=== PATIENT | female | born 1970 | race Caucasian/White ===

== ENCOUNTER 2018-04-07 00:05 | Inpatient (IN) | payer OTHER, MEDICAID ==
[~2018-04-07] VITALS: Ht 121.9 cm; Wt 49.4 kg
[2018-04-07] VITALS (19 sets, daily range): BP systolic 78–165; BP diastolic 35–91
--- NOTE | 2018-04-07 00:05 | NUR ---
47/F BIBA [facility] STARTED TODAY. PT FEBRILE WITH 101.3 RECTAL TEMP, PT ARRIVED WITH DIAPHORETIC SKIN AND ON 2LPM NC. CRACKLES NOTED THROUGHOUT LUNG SOUNDS SATS 97% ON 2LPMNC. TACHY AT 116. PMH: SEIZURE, CERBRAL PALSY, OSTEOPOROSIS, GTUBE, EMYPSHEMA. PT WAS GIVEN TYLENOL 2 HOURS TECHNICAL SALES DIRECTOR BY FACILITY. COOLING MEASURES INITIATED
--- NOTE | 2018-04-07 00:05 | NUR ---
PT [facility] BLS. TAKEN TO BED 3
--- NOTE | 2018-04-07 00:11 | NUR ---
Dr. Nash evaluating patient at bedside.
[2018-04-07] MEDS ORDERED: NACL 0.9% 1,000 ML IV ONE ×2 (00:29)
[2018-04-07] MEDS ORDERED: PIPERACILLIN/TAZOBACTAM 3.375 GM in DEXTROSE 5% 50 ML IV ONE ×2 (00:30→02:15)
[2018-04-07] MEDS ORDERED: ALBUTEROL SULFATE/IPRATROPIU 3 ML SOL IH ONE (00:30)
[2018-04-07] MEDS ORDERED: MIRABULK GT (00:42)
[2018-04-07] MEDS ORDERED: PREG150C GT (00:42)
[2018-04-07] MEDS ORDERED: METO25TA GT (00:42)
[2018-04-07] MEDS ORDERED: LACO150T GT (00:42)
[2018-04-07] MEDS ORDERED: ATOR10TA GT (00:42)
[2018-04-07] MEDS ORDERED: DIGO0.122 GT (00:42)
[2018-04-07] MEDS ORDERED: CHOL100037 GT (00:42)
[2018-04-07] MEDS ORDERED: calcium carbonate (00:42)
[2018-04-07] MEDS ORDERED: ATRN INH (00:42)
[2018-04-07] MEDS ORDERED: RANI150C GT (00:42)
[2018-04-07] MEDS ORDERED: GEMF600T5 GT (00:42)
[2018-04-07] MEDS ORDERED: CARB200T4 GT ×2 (00:42)
[2018-04-07] MEDS ORDERED: CAL40 GT (00:42)
[2018-04-07] MEDS ORDERED: ALEN70TA1 GT (00:42)
[2018-04-07] MEDS ORDERED: PRON INH (00:42)
[2018-04-07] MEDS ORDERED: MULT9LIQ5 GT (00:42)
[2018-04-07] MEDS ORDERED: DIAZEPAM PR (00:42)
[2018-04-07] MEDS ORDERED: NIAC500T30 GT (00:42)
--- NOTE | 2018-04-07 00:48 | NUR ---
RT AT BEDSIDE
[2018-04-07] MEDS ORDERED: PIPERACILLIN/TAZOBACTAM 3.375 GM VIAL IV ONE ×2 (00:51→07:54)
[2018-04-07 01:17] LABS: BASOPHILS % (AUTO) 0.3 % (0.0-2.0); EOSINOPHILS # (AUTO) 0.1 K/uL (0-0.4); EOSINOPHILS % (AUTO) 0.7 % (0.0-4.0); HEMATOCRIT 43.9 % (36-48); HEMOGLOBIN 14.9 g/dL (12.0-16.0); LYMPHOCYTES # (AUTO) 1.8 K/uL (2.5-16.5); MEAN CORPUSCULAR HEMOGLOBIN 31 pg (27-31); MEAN CORPUSCULAR HGB CONC 34 g/dL (33-37); MEAN CORPUSCULAR VOLUME 92.4 fL (80-94); MONOCYTES % (AUTO) 9.7 % (1.7-9.3); NEUTROPHILS # (AUTO) 7.7 K/uL (1.8-7.7); NEUTROPHILS % (AUTO) 72.3 % (42.2-75.2); PLATELET COUNT (AUTO) 204 K/uL (140-450); RED BLOOD CELL COUNT(AUTO) 4.75 MIL/uL (4.20-5.40); RED CELL DISTRIBUTION WIDTH 13.1 % (11.6-13.7); WHITE BLOOD COUNT (AUTO) 10.7 K/uL (4.8-10.8)
[2018-04-07 01:33] LABS: BILIRUBIN,URINE NEGATIVE (NEGATIVE); BLOOD, URINE NEGATIVE (NEGATIVE); COLOR,URINE YELLOW (YELLOW); LEUKOCYTE ESTERASE ,URINE NEGATIVE (NEGATIVE); NITRITE, URINE NEGATIVE (NEGATIVE); UGLUCOSE NEGATIVE (NEGATIVE)
[2018-04-07 01:38] LABS: ANION GAP 10.7 (8-16); CARBON DIOXIDE 31.1 mmol/L (21-32); CREATININE 0.3 mg/dL (0.6-1.3); POTASSIUM 3.8 mmol/L (3.5-5.1)
[2018-04-07 01:44] LABS: TOTAL BILIRUBIN 0.2 mg/dL (0.0-1.0)
[2018-04-07 01:50] LABS: ALBUMIN 3.2 g/dL (3.4-5.0)
[2018-04-07 01:51] LABS: APPEARANCE,URINE SLIGHTLY HAZY (CLEAR); RBC,URINE 0-5 (RARE) /HPF (0-5); WBC,URINE 0-5 (RARE) /HPF (0-5)
[2018-04-07 01:51] LABS: PROTHROMBIN TIME 10.4 secs (10.8-13.4)
[2018-04-07 01:52] LABS: URINE AMORPHOUS URATE 1+ /HPF (None Seen)
[2018-04-07] MEDS ORDERED: HYDROcodone/APAP 5/325 MG 1 TAB TAB PO PRN (01:55)
[2018-04-07] MEDS ORDERED: ONDANSETRON 4 MG/2 ML VIAL IM/IVP PRN (01:55)
[2018-04-07] MEDS ORDERED: DOCUSATE SODIUM 100 MG GELCAP PO PRN (01:55)
[2018-04-07] MEDS ORDERED: ACETAMINOPHEN 325 MG TAB PO PRN (01:55)
[2018-04-07] MEDS ORDERED: MORPHINE SULFATE 2 MG/ML SYR IVP PRN (01:55)
[2018-04-07] MEDS ORDERED: ZOLPIDEM 5 MG TAB PO PRN (01:55)
[2018-04-07] MEDS ORDERED: ALBUTEROL SULFATE/IPRATROPIU 3 ML SOL IH PRN (02:10)
--- NOTE | 2018-04-07 02:19 | NUR ---
Patient will be admitted to [facility]. Admited to TELE . Will go to room 121B. Belongings list completed. Report to JUNO WHITTAKER.
[2018-04-07 02:26] LABS: BARBITURATE, URINE NEG. ng/ml (NEG <=200); BENZODIAZEPINE, URINE NEG. ng/mL (NEG <=200); CANNABINOID, URINE NEG. ng/mL (NEG <=50); COCAINE, URINE NEG. ng/mL (NEG <=300); OPIATE, URINE NEG. ng/mL (NEG <=2000); PHENCYCLIDINE SCREEN,URINE NEG. ng/mL (NEG <=25)
[2018-04-07 02:26] LABS: CHOL/HDL RATIO 3.9 (1-4.5); MAGNESIUM 1.9 mg/dL (1.8-2.4); PHOSPHORUS 2.9 mg/dL (2.5-4.9); THYROID STIMULATING HORMONE 1.09 uIU/mL (0.34-3.74)
--- NOTE | 2018-04-07 02:38 | NUR ---
RECEIVED FROM ER PER SHELLY PT. DX, OF SEPSIS FROM [facility]. NONE VERBAL. LEGALLY BLIND HISTORY, MENTAL RETARDATION , CEREBRAL PALSY , GT FEEDING. COPD AND EMPHYSEMA, OSTEOPOROSIS. COMPLAINTS OF FEVER FROM [facility] CARE AND COUGHING. AFEBRILE AT THIS TIME. CONTRACTED UPPER AND LOWER EXTREMITIES. TELEMETRY MONITORING. SKIN INTACT. TOTAL CARE. NEEDS WILL BE ANTICIPATED AND WILL BE MET. NO EDEMA . LUNGS- CRACKLES .
[2018-04-07] MEDS ORDERED: DIAZEPAM 10 MG PR SCH (03:10)
--- NOTE | 2018-04-07 03:15 | NUR ---
CALLED TO EVALUATE PATIENT, ARRIVED AT ROOM AND PATIENT WAS LETHARGIC AND UNRESPONSIVE, SAO2-89% ON NON- RE-BREATHER WHICH I PLACED ON PATIENT SPOKE TO DR. AGUERO AND SAID PATIENT NEEDS TO BE INTUBATED. DID STATE ABG AND RESULTS GIVEN TO DR. AGUERO. WHILE PATIENT BEING TRANSFERRED TO ICU AT 0333
--- NOTE | 2018-04-07 03:17 | NUR ---
PAGED RESPIRATORY THERAPIST RT 02 SAT AT 6LPM/NC IS 88-89 %. PLACED ON OXYMIZER BY RESPIRATORY THERAPIST. RESIDENT IN HERE TO FURTHER ASSESS PT. STATUS. PLACED A CALL IN [facility] AND CARE FOR FURTHER INFORMATION. NO RESPONSE. RESIDENT TRIED CALLING TOO. NO ANSWER. NO ANSWERING MACHINE ON TEL # [phone] STAT ORDERED BY RESIDENT CASTANO AND MD KHAN FROM ER IN HERE CALLED BY RESIDENT CASTANO.
--- NOTE | 2018-04-07 03:26 | NUR ---
PT. AT THIS TIME NONE RESPONSIVE. PLAN TO INTUBATE PER MD KHAN AND TO TRANSFER TO ICU. CHARGE NURSE ON THE PHONE TO INFORM POWER BRAKE REBUILDER.
--- NOTE | 2018-04-07 03:33 | NUR ---
RECEIVED REPORT FROM PUPPET DEVELOPER, JUNO, FOR CONTINUITY OF CARE. PT WAS BROUGHT IN WITH ER NURSE AND DR. KHAN ALONG WITH RT. PT TO BE INTUBATED.
--- NOTE | 2018-04-07 03:33 | NUR ---
DR. AGUERO AT BEDSIDE; PER DR. AGUERO SHE ALREADY NOTIFIED DR. VARGAS FOR CONSULT. WILL NOTIFY HER WHEN THE DOCTOR COMES IN.
--- NOTE | 2018-04-07 03:44 | NUR ---
PATIENT INTUBATED BY DR. KHAN WITH ETT 7.0 AT 20CM AT LIP. ETCO2 POSITIVE FOR GAS EXCHANGE, B/S BILATERAL AND EQUAL SAO2 95%. PLACED ON VENTILATOR AC-24, VT-350ML, FIO2-100%, PEEP +5. SUCTION THICK YELLOW/GREEN SPUTUM AND SENT TO LAB FOR CULTURE
--- NOTE | 2018-04-07 03:44 | NUR ---
PT. TRANSFERRED TO ICU AND REPORT GIVEN TO SHRIMP TRAWLER.
--- NOTE | 2018-04-07 03:44 | NUR ---
PT WAS SUCCESSFULLY INTUBATED. CHEST XRAY TO FOLLOW. VS STABLE AT THIS TIME. DR AGUERO STILL AT BEDSIDE.
--- NOTE | 2018-04-07 03:46 | NUR ---
CALLED RADIOLOGY DEPARTMENT FOR CHEST X-RAY POST INTUBATION
[2018-04-07] MEDS ORDERED: SUCCINYLCHOLINE CHLORIDE 200 MG/10 ML VIAL IVP ONE (03:50)
[2018-04-07] MEDS ORDERED: ETOMIDATE 20 MG/10 ML VIAL IVP ONE (03:50)
--- NOTE | 2018-04-07 03:50 | NUR ---
VS STABLE. AFEBRILE. FLACC 0. PT HAS CONTRACTED EXTREMITIES. ETT TO VENT WITH SETTINGS: FIO2 50%, TV 350, RR 24 AND PEEP 5. LUNG SOUND COARSE. RESPIRATIONS EVEN AND UNLABORED AT THIS TIMED. S1+S2 HEARD. SINUS TACHYCARDIA ON MONITOR. PULSES PALPABLE IN ALL EXTREMITIES. ABDOMEN ROUND, SOFT AND NONDISTENDED. GTUBE IN PLACE. NO RESIDUAL NOTED. RECEIVED PT WITH PERIPHERAL IV ACCESS ON RIGHT ARM 20G AND RIGHT UPPER ARM 22G. MEDLEY CATHETER IN PLACE THAT IS DRAINING CLEAR AND LIGHT YELLOW URINE. KEPT HOB AT 30 DEGREES. ALL SAFETY PRECAUTIONS ARE IN PLACE. WILL CONTINUE TO MONITOR PT.
--- NOTE | 2018-04-07 04:00 | NUR ---
0340 RSI PERFORMED BY LEXY COLLAZO GIVEN PER ORDERS. ETT 7.0 20 AT THE LIP. Addendum: 04/07/18 at 0424 by Agency 05 RN RN 0342 50MG SUCC GIVEN IVP PER ORDER
[2018-04-07] MEDS ORDERED: DEXTROSE 50% 50 ML SYR IVP PRN (04:10)
[2018-04-07] MEDS: NACL 0.9% 1,000 ML IV SCH ×2 (04:30→20:32)
[2018-04-07] MEDS ORDERED: MECLIZINE 25 MG TAB PO PRN (04:30)
--- NOTE | 2018-04-07 05:25 | NUR ---
VISUAL MANAGER AT BEDSIDE TO DRAW BLOOD.
[2018-04-07] MEDS ORDERED: ALBUTEROL SULFATE/IPRATROPIU 3 ML SOL IH SCH (06:00)
[2018-04-07] MEDS: LORazepam 2 MG/ML VIAL IM/IVP PRN (06:48)
[2018-04-07] MEDS ORDERED: PIPER/TAZO 3.375GM/D5W PREMIX 50 ML IV SCH (07:00)
--- NOTE | 2018-04-07 07:25 | NUR ---
RECEIVED REPORT FROM CORPORATE COMPLIANCE OFFICER RN. PT RESTING IN BED. RESPONSE TO PAIN, NON-VERBAL. ST ON MONITOR. ON ETT TO VENT AC 24 FIO2 100% TV 350 PEEP 5. LUNGS COARSE ON AUSCULTATION. MICHELLE 22G. NS RUNNING AT 60 ML/HR. ABDOMEN SOFT, ROUND AND NON-TENDER. ACTIVE BOWEL SOUND. G-TUBE IN LUQ. ON MEDLEY CATH DRAINING CLEAR URINE VIA GRAVITY. CONTRACTED BOTH UPPER AND LOWER EXTREMITIES. REDNESS NOTED ON LEFT ABDOMEN. HOB ELEVATED. BED IN LOW POSITION LOCKED. WILL CONTINUE TO MONITOR.
--- NOTE | 2018-04-07 07:35 | NUR ---
PT SEEN BY MARC SOLORIO AND RESIDENT GROUP. MADE HANSEN ABOUT UNABLE TO GET NEW LINE WITH 20G FOR CT ANGIO PROCEDURE.
[2018-04-07] MEDS ORDERED: NACL 0.9% 500 ML IV SCH (08:00)
[2018-04-07] MEDS: INSULIN LISPRO SLIDING SCALE 100 UNITS/ML VIAL SUBQ PRN ×4 (08:02→20:58)
[2018-04-07] MEDS: BLOOD GLUCOSE MONITORING 1 DEV DEV FS SCH ×4 (08:05→20:55)
--- NOTE | 2018-04-07 08:05 | NUR ---
DIANE/RN A T BEDSIDE FOR PATIENT PHYSICAL ASSESSMENT, HYGIENE AND REPOSITION CARD FIXER TO ATTEMPT HHN THERAPY PATIENT AND VENTILATOR ASSESSMENT AT A LATER TIME
[2018-04-07] MEDS: CHOLECALCIFEROL 1,000 IU TAB GT SCH (08:33)
[2018-04-07] MEDS: GEMFIBROZIL 600 MG TAB GT SCH ×2 (08:33→16:32)
[2018-04-07] MEDS: LACTOBACILLUS RHAMNOSUS GG 1 EACH CAP PO SCH (08:33)
[2018-04-07] MEDS: NIACIN 500 MG TAB GT SCH ×2 (08:33→20:32)
[2018-04-07] MEDS: VERAPAMIL 40 MG TAB GT SCH ×2 (08:34→21:00)
[2018-04-07] MEDS: PREGABALIN 50 MG CAP GT SCH ×3 (08:35→16:32)
[2018-04-07] MEDS: POLYETHYLENE GLYCOL 17 GM/PKT GT SCH (08:35)
--- NOTE | 2018-04-07 08:39 | NUR ---
PATIENT HAS BEEN SCREENED AND CATEGORIZED HIGH NUTRITION RISK. PATIENT WILL BE SEEN WITHIN 1-2 DAYS OF ADMISSION. 04/07/18 04/08/18 Gris Tolliver MBA, RD
[2018-04-07] MEDS: FAMOTIDINE 20 MG TAB GT SCH ×2 (08:50→20:33)
[2018-04-07] MEDS: DIGOXIN 0.125 MG TAB GT SCH (08:51)
[2018-04-07] MEDS ORDERED: NON-FORMULARY ITEM (Lacosamide (Vimpat) 150 MG) GT SCH (09:00)
[2018-04-07] MEDS ORDERED: FERROUS FUM GT SCH (09:00)
[2018-04-07] MEDS ORDERED: MULTIVIT GT SCH (09:00)
[2018-04-07] MEDS: METOPROLOL 25 MG TAB GT SCH (09:00)
[2018-04-07] MEDS ORDERED: NON-FORMULARY ITEM (Ranitidine HCl (Ranitidine Hcl) 1 CAP) GT SCH (09:00)
[2018-04-07] MEDS ORDERED: CARBAMAZEPINE 200 MG GT SCH (09:00)
[2018-04-07] MEDS ORDERED: MINERALS GT SCH (09:00)
--- NOTE | 2018-04-07 09:07 | NUR ---
SKT-MED NOT GIVEN PREMIX ZOSYN RECEIVED FROM PHARMACY ADMINISTERED INSTEAD. PHARMACY AWARE.
--- NOTE | 2018-04-07 09:15 | NUR ---
RECEIVED ON A [employer] R860 VENTILATOR PLUGGE INTO RED OUTLET TOLERATING WELL WITHOUT ADVERSE REACTIONS NOTED TO AN ENDOTRACHEAL TUBE #7.0 SECURED AT 20cm WITH AN ANCHOR FAST CUFF PRESSURE CHECKED NOTED AMBU BAG NOTE AT HOB LOC QUIET BREATH SOUNDS COARSE RHONCHI BILATERAL WITH GOOD CHEST RISE ENDOTRACHEAL SUCTION FOR SMALL SEMI THICK YELLOW SECRETIONS AIRWAY PATENT REVIEWED CXR DATED 04/07/2018 AT [address] AUSTIN KHAN ADVANCE ETT 2cm ADVANCED ETT 2cm JESSICA SUE AT [facility] FOR ASSIST CXR TO FOLLOW FOR CONFIRMATION FOR ETT PLACEMENT
--- NOTE | 2018-04-07 09:50 | NUR ---
PT NOTED WITH FLUSHED FACE AND UPPER PART OF BODY. DR. MILES MADE AWRE. PT SEEN BY DR. MILES.
[2018-04-07] MEDS ORDERED: diphenhydrAMINE 50 MG/ML VIAL IVP SCH (10:15)
--- NOTE | 2018-04-07 10:18 | NUR ---
TRANSFERRED PATIENT TO RADIOLOGY FOR CT SCAN OF THE HEAD REMOVED PATIENT FRO VENTILATOR PLACED ON AN AMBU BAG TO INLINE SUCTION CATHETER/ENDOTRACHEAL TUBE WITH SUPPLEMENTAL OXYGEN AT 15LPM VIA E-TANK PSI CHECKED AND IS AT APPROPRIATE LEVEL AMBU BAG DEPRESSION EVERY 6-8 SECONDS PATIENT Addendum: 04/07/18 at 1044 by Hiram Mandujano RT SATURATION 99% HR 101-104
--- NOTE | 2018-04-07 10:33 | NUR ---
PATIENT TOLERATED CT SCAN PROCEDURE WELL WITHOUT INCIDENT TRANSFERRED BACK TO ICU-3 AMBU DEPRESSION EVERY 6-8 SECONDS OXYGEN VIA E-TANK AT 15LPM SATURATION 100% HR 104-105 PATIENT TOLERATED TRANSFER WELL WITHOUT INCIDENT PLACED PATIENT BACK ON A [employer] R860 VENTILATOR WITH SAME SETTINGS NOTED
--- NOTE | 2018-04-07 11:31 | NUR ---
ADMINISTERED MEDICINE PER ORDER. PT ON NS BOLUS. BP 86/71. DR. MILES AWARE. NO ACUTE RESPIRATORY DISTRESS NOTED. SATURATING 100%. ON CONTINUOUS MONITORING.
--- NOTE | 2018-04-07 11:37 | NUR ---
PT NOTED WITH ELEVATED BODY TEMPERATURE 100.4. TYLENOL ORDER ADMINISTERED. WILL CONTINUE TO MONITORY. Addendum: 04/07/18 at 1138 by Lucrecia Horvath RN MONITOR.
--- NOTE | 2018-04-07 11:50 | NUR ---
RESTING WELL WITH NO EVIDENCE OF PULMONARY DISTRESS NOTED GOOD CHEST RISE ENDOTRACHEAL SUCTION FOR MODERATE THIN YELLOW WITH BLOOD TINGE SECRETIONS AIRWAY PATENT SATURATION 100% ON FIO2 OF 100% TITRATED FIO2 TO 80% DIANE/RN NOTIFIED
--- NOTE | 2018-04-07 12:05 | NUR ---
BOLUS DONE. BP 80/39. DR. MILES MADE AWARE.
--- NOTE | 2018-04-07 12:09 | NUR ---
REVIEWED CXR DATED 04/07/2018 @ 1135 IMPRESSION: ENDOTRACHEAL TUBE 1cm ABOVE KHADIJAH
[2018-04-07] MEDS: MIDODRINE 5 MG TAB GT SCH ×3 (12:15→19:10)
--- NOTE | 2018-04-07 12:22 | NUR ---
ADMINISTERED MIDODRINE ORDER.
[2018-04-07] MEDS: ALBUTEROL SULFATE/IPRATROPIU 3 ML SOL IH SCH ×2 (13:14→18:59)
--- NOTE | 2018-04-07 13:14 | NUR ---
NO DISTRESS NOTED GOOD CHEST RISE ENDOTRACHEAL SUCTION FOR SMALL THIN YELLOW WITH BLOOD TINGE SECRETIONS AIRWAY PATENT Addendum: 04/07/18 at 1357 by Hiram Mandujano RT SATURATION 100% ON FIO2 OF 80% TITRATED FIO2 TO 60% DIANE/PANFILO NOTIFIED
[2018-04-07] MEDS: PIPER/TAZO 3.375GM/D5W PREMIX 50 ML IV SCH ×2 (13:15→20:33)
--- NOTE | 2018-04-07 13:26 | NUR ---
BODY TEMPERATURE DECREASED TO 99.3 DEGREE F. PT RESTING IN BED COMFORTABLY. NO ACUTE RESPIRATORY DISTRESS NOTED. RT AT BEDSIDE.
--- NOTE | 2018-04-07 13:43 | NUR ---
CALLED DIETARY LEFT MESSAGE REGARDING FNS CONSULT.
--- NOTE | 2018-04-07 14:40 | NUR ---
CALLED DIETARY FOR FNS CONSULT BUGGY LADLE TENDER SAID REROLLER HAND DONE FOR TODAY. PT WILL BE SEEN TOMORROW BY REROLLER HAND. DR. GINGER JOHNS.
--- NOTE | 2018-04-07 15:13 | NUR ---
RECEIVED CALL FROM [facility] DIANE VILLALTA. UPDATED PT CONDITION. THIS NURSE MADE REQUEST TO PROVIDE INFORMATION REGARDING IMMUNIZATION STATUS. SAID WILL CALL US BACK. WAITING FOR CALL BACK.
--- NOTE | 2018-04-07 15:52 | NUR ---
STABLE NO DISTRESS NOTED GOOD CHEST RISE PULLED ENDOTRACHEAL TUBE 21cm PLACING AT 2cm ABOVE KHADIJAH
--- NOTE | 2018-04-07 16:41 | NUR ---
ORAL, CATHETER CARE PROVIDED. REPOSITIONED. KEPT PT CLEAN AND DRY. AFEBRILE. T 98.5. NO ACUTE RESP DISTRESS NOTED. RESPONSE TO STIMULI. BP 95/58. WILL CONTINUE TO MONITOR.
--- NOTE | 2018-04-07 17:18 | NUR ---
RESTING COMFORTABLY NO EVIDENCE OF RESPIRATORY DISTRESS NOTED GOOD CHEST RISE AIRWAY PATENT NO SUCTIONING AT THIS TIME FICTION AND NONFICTION AUTHOR TO MONITOR
--- NOTE | 2018-04-07 17:52 | NUR ---
DR. HOLLEY AWARE ABOUT LACTIC ACID RESULT AND URINE OUTPUT.
--- NOTE | 2018-04-07 18:20 | NUR ---
RESTING IN BED. NO ACUTE RESP DISTRESS NOTED. VS WNL. NO CHANGE IN LOC. CONTINUE TO MONITOR.
--- NOTE | 2018-04-07 19:07 | NUR ---
REPORT GIVEN TO RESIDENTIAL INSTALLER RN BERNICE FOR CONTINUITY OF CARE. PT ON STABLE CONDITION.
--- NOTE | 2018-04-07 19:09 | NUR ---
RECEIVED REPORT FROM AM NURSE. PT. NON-VERBAL. AFEBRILE. BILAT BLINDNESS. RESPONDS TO TACTILE STIMULI. ETT TO VENT FIO2 60 VT 350 PEEP 5. LUNG SOUNDS CLEAR. SINUS RHYTHM ON MONITOR. NO EDEMA. NO JVD. GT TO LUQ. NO RESIDUAL NOTED. BOWEL SOUNDS HYPOACTIVE X4 QUADRANTS. ABD SOFT NONDISTENDED. F/C INTACT. URINE CLEAR, YELLOW. CONTRACTIONS BUE/BLE. SIDE RAILS UP X4. SZ PRECAUTIONS IMPLEMENTED. BED IN LOWEST POSITION. WILL CONTINUE TO MONITOR.
[2018-04-07] MEDS: LACOSAMIDE GT SCH (20:36)
[2018-04-07] MEDS ORDERED: CARBAMAZEPINE 400 MG GT SCH (21:00)
--- NOTE | 2018-04-07 21:15 | NUR ---
SX SMALL BLOODY SECRETION
--- NOTE | 2018-04-07 22:26 | NUR ---
PT TURNED AT THIS TIME. LOW BP NOTED 89/59 [address]AS NOTED. DR. AGUERO NOTIFIED. WILL CONTINUE TO FOLLOW UP ANY ADDITIONAL ORDERS.
[2018-04-07] MEDS ORDERED: NACL 0.9% 500 ML IV ONE (22:30)
--- NOTE | 2018-04-07 22:30 | NUR ---
DR. AGUERO AT BEDSIDE TO EVALUATE TO PATIENT. WILL CONTINUE TO FOLLOW ADDITIONAL ORDERS.
--- NOTE | 2018-04-07 23:31 | NUR ---
EKG AT BEDSIDE AT THIS TIME. DR. AGUERO NOTIFIED OF RESULTS.
[2018-04-08] VITALS (26 sets, daily range): BP systolic 87–173; BP diastolic 50–100
--- NOTE | 2018-04-08 01:29 | NUR ---
RT AT BEDSIDE AT THIS TIME. WILL FOLLOW UP ADDITIONAL ORDERS
--- NOTE | 2018-04-08 03:59 | NUR ---
SX SMALL BROWN/BLOODY SECRETION, PT AWAKE , VENT CK DONE
--- NOTE | 2018-04-08 04:12 | NUR ---
PT CLEANED AND REPOSITIONED AT THIS TIME. NO SIGNS OF ACUTE DISTRESS NOTED.
[2018-04-08] MEDS: PIPER/TAZO 3.375GM/D5W PREMIX 50 ML IV SCH ×2 (04:34→13:22)
--- NOTE | 2018-04-08 05:23 | NUR ---
LAB AT BEDSIDE AT THIS TIME.
--- NOTE | 2018-04-08 05:54 | NUR ---
DR. PAEZ AT BEDSIDE TO EVALUATE PATIENT. WILL CONTINUE TO MONITOR AND ADDITIONAL ORDERS.
[2018-04-08 06:01] LABS: ANION GAP 12.7 (8-16); CARBON DIOXIDE 23.8 mmol/L (21-32); CREATININE 0.5 mg/dL (0.6-1.3)
[2018-04-08 06:17] LABS: POTASSIUM 2.5 mmol/L (3.5-5.1)
[2018-04-08] MEDS ORDERED: KCL 20 MEQ/WATER INJ PREMIX 200 ML IV SCH (06:25)
--- NOTE | 2018-04-08 06:25 | NUR ---
CRITICAL LAB VALUE K: 2.5 AND Ca: 7.[address] DYKES. WILL CONTINUE TO FOLLOW UP ADDITIONAL ORDERS.
[2018-04-08] MEDS: BLOOD GLUCOSE MONITORING 1 DEV DEV FS SCH ×3 (06:34→17:08)
[2018-04-08 06:35] LABS: HEMATOCRIT 37.8 % (36-48); HEMOGLOBIN 12.4 g/dL (12.0-16.0); MEAN CORPUSCULAR HEMOGLOBIN 31 pg (27-31); MEAN CORPUSCULAR HGB CONC 33 g/dL (33-37); MEAN CORPUSCULAR VOLUME 93.9 fL (80-94); PLATELET COUNT (AUTO) 216 K/uL (140-450); RED BLOOD CELL COUNT(AUTO) 4.02 MIL/uL (4.20-5.40); RED CELL DISTRIBUTION WIDTH 12.7 % (11.6-13.7); WHITE BLOOD COUNT (AUTO) 10.6 K/uL (4.8-10.8)
[2018-04-08 06:36] LABS: BASOPHILS # (AUTO) 0.1 K/uL (0.00-0.22); BASOPHILS % (AUTO) 0.5 % (0.0-2.0); EOSINOPHILS % (AUTO) 0.2 % (0.0-4.0); LYMPHOCYTES # (AUTO) 2.3 K/uL (2.5-16.5); LYMPHOCYTES % (AUTO) 21.9 % (20.5-51.1); MONOCYTES # (AUTO) 0.9 K/uL (0.8-1.0); MONOCYTES % (AUTO) 8.8 % (1.7-9.3); NEUTROPHILS # (AUTO) 7.3 K/uL (1.8-7.7); NEUTROPHILS % (AUTO) 68.6 % (42.2-75.2)
[2018-04-08] MEDS: INSULIN LISPRO SLIDING SCALE 100 UNITS/ML VIAL SUBQ PRN (06:37)
[2018-04-08] MEDS: ALBUTEROL SULFATE/IPRATROPIU 3 ML SOL IH SCH ×2 (06:50→13:01)
[2018-04-08] MEDS: MIDODRINE 5 MG TAB GT SCH ×2 (07:00→13:21)
--- NOTE | 2018-04-08 07:00 | NUR ---
RECEIVED INTUBATED PT WITH A 7.0 ETT SECURED @21 TEETH/GUMS ON VENT. SETTINGS AC 24, VT 350, PEEP 5 AND FIO2 60%. PT IS NOT AWAKE AT THIS TIME BUT IS NOT IN ANY DISTRESS. ETT IS SECURE WITH ANCHOR FAST DEVICE WITH A PATENT AIRWAY. THERE IS NO BITING OR KINKING OF ETT AT THIS TIME. VENT IS PLUGGED INTO A RED OUTLET WITH ALARMS ON AND FUNCTIONING. WILL CONTINUE TO MONITOR.
[2018-04-08 07:04] LABS: MAGNESIUM 1.7 mg/dL (1.8-2.4); PHOSPHORUS 2.1 mg/dL (2.5-4.9)
[2018-04-08] MEDS ORDERED: KCL 20 MEQ/WATER INJ PREMIX 200 ML IV ONE ×2 (07:05)
--- NOTE | 2018-04-08 07:09 | NUR ---
ENDORSED CARE TO INCOMING SHIFT FOR CONTINUITY OF CARE. NO SIGNS OF ACUTE DISTRESS NOTED.
--- NOTE | 2018-04-08 07:25 | NUR ---
RECEIVED REPORT FROM EDUCATIONAL AIDE NURSE, ENE. PATIENT NON VERBAL UNABLE TO FOLLOW COMMANDS. BLIND IN BOTH EYES, UNABLE TO ASSESS PERRL. ETT TO VENT, VENT SETTING FIO2 60 TV 350 PEEP 5. LUNGS SOUNDS CLEAR BILATERALLY. CONTRACTURES NOTED IN BUE/BLE. ABD SOFT AND NON-TENDER. BOWEL SOUNDS HYPOACTIVE x4 QUADRANTS. SKIN WARM DRY AND INTACT. IV ACCESS IN L UPPER ARM [address] VSS. WILL CONTINUE TO MONITOR.
[2018-04-08] MEDS: GEMFIBROZIL 600 MG TAB GT SCH ×2 (08:55→17:33)
[2018-04-08] MEDS: FAMOTIDINE 20 MG TAB GT SCH (08:55)
[2018-04-08] MEDS: NIACIN 500 MG TAB GT SCH (08:55)
[2018-04-08] MEDS: LACTOBACILLUS RHAMNOSUS GG 1 EACH CAP PO SCH (08:56)
[2018-04-08] MEDS: CHOLECALCIFEROL 1,000 IU TAB GT SCH (08:56)
[2018-04-08] MEDS: PREGABALIN 50 MG CAP GT SCH ×3 (08:56→17:33)
[2018-04-08] MEDS: POLYETHYLENE GLYCOL 17 GM/PKT GT SCH (08:56)
[2018-04-08] MEDS: VERAPAMIL 40 MG TAB GT SCH (09:00)
[2018-04-08] MEDS ORDERED: MULTIVITAMIN 5 ML ORASYR GT SCH (09:00)
[2018-04-08] MEDS ORDERED: MULTIVITAMIN/MINERALS 15 ML UDBTL GT SCH (09:00)
[2018-04-08] MEDS: METOPROLOL 25 MG TAB GT SCH (09:00)
[2018-04-08] MEDS ORDERED: POTASSIUM CHLORIDE 40 MEQ, LIDOCAINE 1% 25 MG in NACL 0.9% 250 ML IV SCH ×2 (09:00→13:00)
[2018-04-08] MEDS: DIGOXIN 0.125 MG TAB GT SCH (09:00)
--- NOTE | 2018-04-08 09:00 | NUR ---
BP MEDICATION AND DIGOXIN NOT GIVEN PER DR PAEZ, BP DROPPED LAST NIGHT. WILL MONITOR CLOSELY.
[2018-04-08] MEDS: LACOSAMIDE GT SCH (09:09)
[2018-04-08] MEDS ORDERED: INTERDRY CLOTH TP PRN (10:10)
--- NOTE | 2018-04-08 10:30 | NUR ---
WOUND NURSEJAN, AT BEDSIDE.
--- NOTE | 2018-04-08 10:36 | NUR ---
SCREEN FOR LOW TOMY SCALE: SKIN ASSESSMENT DONE WITH PRIMARY RN, SKIN INTACT, SKIN FOLDS AND GROINS ARE MOISTURE, KEEP AREA DRY AND CLEAN. DR. PAEZ AT BED SIDE, RECOMMENDATION GIVEN TO APPLY INTER DRY CLOTH PREVENTION. PRIMARY RN NOTIFY FREQUENT POSITION CHANGE DUE TO DEFORMITY OF TRUNK AND EXTREMITIES WITH LARGE SKIN FOLDS TO POSTERIOR. -TURN AND REPOSITION PATIENT Q HOUR OFFLOAD BACK -ASSESS AND MONITOR SKIN CONDITION DURING POSITION CHANGE, PLEASE PAY ATTENTION TO HEELS -OFFLOAD BILATERAL HEELS BY PLACING PILLOWS UNDER CALVES AT ALL TIMES, UNLESS OTHERWISE CONTRAINDICATED -PRESSURE REDISTRIBUTION SURFACE THERAPY -KEEP SKIN CLEAN AND DRY AT ALL TIMES
[2018-04-08] MEDS: LORazepam 2 MG/ML VIAL IM/IVP PRN (11:08)
--- NOTE | 2018-04-08 11:42 | NUR ---
PT SUCTIONED OBTAINED SMALL AMOUNT OF THICK YELLOW SECRETIONS, AIRWAY IS PATENT ETT IS SECURE.
[2018-04-08] MEDS ORDERED: SODIUM PHOS / POTASSIUM PHOS 1 PKT PDR PO SCH (13:00)
[2018-04-08] MEDS ORDERED: MAGNESIUM OXIDE 400 MG TAB PO SCH (13:00)
[2018-04-08] MEDS: NACL 0.9% 1,000 ML IV SCH (13:24)
[2018-04-08] MEDS ORDERED: MORPHINE SULFATE 50 MG in NACL 0.9% 45 ML IV PRN (13:40)
--- NOTE | 2018-04-08 14:10 | NUR ---
VISIT BY THE BLOCK SAW OPERATOR JOSE MEREDITH [phone]. AT BEDSIDE,
--- NOTE | 2018-04-08 14:15 | NUR ---
DAGO CARRILLO/[facility] [place] [facility] CALLED TO CHECK PATIEN CONDITION. AND SAID THE PATIENT MOTHER WILL MAKE ALL DECISION FOR PATIENT WELFARE . DAGO PHONE [phone].
--- NOTE | 2018-04-08 14:25 | NUR ---
TALK TO JAYNE CARTWRIGHT PATIENT MOTHER [phone], [phone] ,[phone]. JUSTINO WISHES TO RANDALL HER CODE STATUS TO DNR. REFER TO HE IS IN ICU AT THE TIME.
--- NOTE | 2018-04-08 14:55 | NUR ---
ELADIA THE CASE DIRECTOR TALK TO JAYNE THE PATIENT MOTHER AWARE OF THE CODE STATUS CHANGED.
--- NOTE | 2018-04-08 15:00 | NUR ---
DR. PAEZ TALK TO THE MOTHER CODE STATUS CHANGED TO DNR WITH COMFORT MEASURESONLY /PALLITIVE CARE.
--- NOTE | 2018-04-08 15:02 | NUR ---
04/08/18 RD INITIAL ASSESSMENT COMPLETED PLEASE REFER TO NUTRITION ASSESSMENT UNDER CARE ACTIVITY FOR ESTIMATED NUTRITIONAL NEEDS. 1. CONTINUE NPO DIET TOLERATED 2. WHEN MEDICALLY CLEARED, RECOMMEND VITAL AF 1.2 DONIS @ 45 ML/HR 70 Q4H WATER FLUSH. -THIS WILL PROVIDE 1335 KCAL AND 83 G PROTEIN AND 1335 ML OF FLUIDS WHICH WILL PROVIDE 100% OF ESTIMATED PTS NEEDS. 3. RD TO FOLLOW-UP 2-3 DAYS, HIGH RISK JOSE GUADALUPE BARAHONA, RD
--- NOTE | 2018-04-08 15:05 | NUR ---
DAGO FROM [facility] INFORM REGARDING CODE STATUS CHANGED.
--- NOTE | 2018-04-08 15:30 | NUR ---
PT EXTUBATED BY REQUEST OF THE PHYSICIAN. PT PLACED ON COOL AEROSOL 40%. PT TOLERATING WELL, NO STRIDOR HEARD ON AUSCULTATION. WILL CONTINUE TO MONITOR.
--- NOTE | 2018-04-08 15:30 | NUR ---
RT AT BEDSIDE; PATIENT EXTUBATED PER DR AMAYA ORDERS. PLACED ON NONREBREATHER WITH O2 RUNNING AT 12L. PATIENT VSS. SPO2 STABLE AT 99%. PATIENT GIVEN 2MG MORPHINE ORDERED TO HELP WITH HER DISTRESS. Addendum: 04/08/18 at 1551 by Yesenia Gaspar RN PATIENT ON A COOL AEROSOL NOT NON REBREATHER
[2018-04-08] MEDS: MORPHINE SULFATE 2 MG/ML SYR IVP PRN ×2 (15:36→17:56)
--- NOTE | 2018-04-08 16:24 | NUR ---
0154 SPOKE WITH JAYNE PTS MOTHER AND VERIFIED THAT SHE ONLY WANTS COMFORT MEASURES FOR PT. STATED THAT SHE HAS ALREADY MADE MORTUARY ARRANGEMENT "I ALMOST LOST HER ONCE SO I MADE ARRANGEMENTS AT THAT TIME FOR HER TO BE BURIED WITH THE REST OF THE FAMILY". STATED THAT [employer] [facility] HAS THE INFORMATION REGARDING MORTUARY. TWO PERSONEL HERE FROM [facility] AND PROVIDED A FACE SHEET WITH MORTUARY INFORMATION. MORTUARY IS [address] [address], PHONE [phone].
[2018-04-08] MEDS: LORazepam 2 MG/ML VIAL IVP PRN ×2 (17:06→21:32)
--- NOTE | 2018-04-08 17:58 | NUR ---
PATIENTS SPO2 AT 82%. COMFORT MEASURES IN PLACE. CALLED RT.
--- NOTE | 2018-04-08 18:17 | NUR ---
RT AT BEDSIDE. PATIENT PUT ON NON REBREATHER 100%
--- NOTE | 2018-04-08 18:31 | NUR ---
1820 PLACED PATIENT ON NRB MASK AT 15 LITERS, PT SATS 88%.
--- NOTE | 2018-04-08 18:34 | NUR ---
MORPHINE DRIP STARTED AT 3MG/HR WILL MONITOR CLOSELY. PATIENT SATURATION IS HOLDING AT 92%
--- NOTE | 2018-04-08 19:20 | NUR ---
RECEIVED REPORT FROM MORNING SHIFT RN, ERUM, FOR CONTINUITY OF CARE. PT IS NONVERBAL AT BASELINE, BLIND IN BOTH EYES, DNR STATUS NOTED. AFEBRILE WITH TEMP 97.1. PT IS ON NONREBREATHER MASK AT 100%. LUNG SOUND RHONCHI ON BILATERAL UPPER AND LOWER BASES ON AUSCULTATION & INTERCOSTAL RETRACTIONS. BOWEL SOUNDS HYPOACTIVE ON AUSCULTATION. ST ON BLOOD BANK ATTENDANT, WITH HR 134-135'S. MEDLEY CATHETER IN PLACE, DARK [place] URINE. RIGHT UPPER ARM 22 GAUGE INFUSING NS AT 60ML/HR AND MORPHINE AT 5MG/HR. BEDBOUND, SKIN IS INTACT, REDNESS ON FACE/NECK NOTED. GENERALIZED EDEMA, +2 PITTING ON FEET. PILLOW SUPPORT PROVIDED. FALL, SEIZURE AND STANDARD PRECAUTIONS MAINTAINED.
--- NOTE | 2018-04-08 19:27 | NUR ---
REPORT GIVEN TO [facility] NURSE FOR CONTINUITY OF CARE.
--- NOTE | 2018-04-08 19:30 | NUR ---
Air Analysis Technician Notes: These senior grant writer attempted to meet with patient family at bedside however told By RN that Mother has left. I attempted to contact her via telephone call but no response.
--- NOTE | 2018-04-08 20:20 | NUR ---
DR. FREEMAN AT BEDSIDE TO SEE PT.
--- NOTE | 2018-04-08 22:18 | NUR ---
DR. FREEMAN AT BEDSIDE, UPDATED ON PT CONDITION, MORPHINE INCREASED TO 9MG/HR.
--- NOTE | 2018-04-08 23:00 | NUR ---
TIME OF AT 2300.
--- NOTE | 2018-04-08 23:08 | NUR ---
DR. FREEMAN AT BEDSIDE TO PRONOUNCE PT .
--- NOTE | 2018-04-08 23:14 | NUR ---
CONTACTED NEXT OF KIN, PT MOTHER, JAYNE CARTWRIGHT, INFORMED THAT PT IS AT 2300. JAYNE STATED SHE WILL NOT BE ABLE TO COME AND SEE PT, INFORMED THAT PATIENT WILL BE MOVED TO THE SELECTED [facility]ORT[facility]. DENIED AUTOPSY.
--- NOTE | 2018-04-09 00:32 | NUR ---
CALLED SB OVEN DRIER TENDER'S OFFICE, SPOKE WITH NIKOLE, INFORMED HER THAT OVEN DRIER TENDER HAS NOT STOPPED BY WITHIN THE LAST HOUR. SHE STATED THAT OVEN DRIER TENDER'S OFFICE IS BUSY AT THIS TIME, AND OVEN DRIER TENDER WILL FOLLOW-UP WHEN AVAILABLE.
--- NOTE | 2018-04-09 02:43 | NUR ---
RECEIVED CALL BACK FROM FINISH OFF OPERATOR'S OFFICE, BONNIE, AFTER PT INFORMATION PROVIDED, STATED THIS WAS NOT A FINISH OFF OPERATOR'S CASE. REFERENCE NUMBER: [id number].
--- NOTE | 2018-04-09 02:54 | NUR ---
CONTACTED [facility], AT [phone] AND SPOKE TO AILEEN. PROVIDED MORTUARY PT AND NEXT OF KIN INFORMATION, REPORTED THAT IT WAS NOT A BOX PULLER'S CASE, AND FAMILY WILL NOT/WAS NOT AT PATIENT BEDSIDE.
--- NOTE | 2018-04-09 04:34 | NUR ---
CALLED [facility] FOR FOLLOW-UP ON ESTIMATED TIME OF ARRIVAL, SPOKE TO NARDA, STATED THAT TRANSPORTATION WAS ENROUTE AND LEFT APPROX. 3AM. NARDA STATED SHE LEFT TRANSPORT A MESSAGE TO CONTACT ICU/[facility] WITH JORDAN.
--- NOTE | 2018-04-09 04:52 | NUR ---
RECEIVED CALL BACK, TRANSPORT STATED ESTIMATED TIME OF ARRIVAL OF +35 MINUTES (5730).
--- NOTE | 2018-04-09 05:48 | NUR ---
PT BODY RELEASED TO [facility]/ [facility].
[2018-04-11] MEDS ORDERED: ALENDRONATE SODIUM 70 MG TAB PO SCH (09:00)
== END 2018-04-08 23:00 | disposition expired | DRG 871 ==
LOC: MED 00:05 → MTU 01:55 → MIC 03:34
PROVIDERS: ADMIT General Practice; ATTEND General Practice
PROC: 0BH17EZ Insertion of Endotracheal Airway into Trachea, Via Natural or Artificial Opening (ICD-10-PCS; principal; 2018-04-07)
PROC: 5A1945Z Respiratory Ventilation, 24-96 Consecutive Hours (ICD-10-PCS; 2018-04-07)
DX: A41.9 Sepsis, unspecified organism (principal); J69.0 Pneumonitis due to inhalation of food and vomit; G82.50 Quadriplegia, unspecified; J96.01 Acute respiratory failure with hypoxia; J96.02 Acute respiratory failure with hypercapnia; G93.41 Metabolic encephalopathy; E43 Unspecified severe protein-calorie malnutrition; N39.0 Urinary tract infection, site not specified; G91.9 Hydrocephalus, unspecified; D68.59 Other primary thrombophilia; R65.20 Severe sepsis without septic shock; E11.65 Type 2 diabetes mellitus with hyperglycemia; J43.9 Emphysema, unspecified; G90.9 Disorder of the autonomic nervous system, unspecified; E83.39 Other disorders of phosphorus metabolism; E83.42 Hypomagnesemia; I46.9 Cardiac arrest, cause unspecified; Z66 Do not resuscitate; E87.8 Other disorders of electrolyte and fluid balance, not elsewhere classified; E83.51 Hypocalcemia; E11.51 Type 2 diabetes mellitus with diabetic peripheral angiopathy without gangrene; I10 Essential (primary) hypertension; E78.1 Pure hyperglyceridemia; K21.9 Gastro-esophageal reflux disease without esophagitis; H54.8 Legal blindness, as defined in USA; M81.0 Age-related osteoporosis without current pathological fracture; G40.909 Epilepsy, unspecified, not intractable, without status epilepticus; E87.6 Hypokalemia; Z51.5 Encounter for palliative care; E66.9 Obesity, unspecified; Z68.33 Body mass index [BMI] 33.0-33.9, adult; Z79.899 Other long term (current) drug therapy; Z74.01 Bed confinement status; Z93.1 Gastrostomy status
CPT/HCPCS: 36415; 36600; 70450; 71045; 80048; 80053; 80305; 81001; 82140; 82803; 82948; 83036; 83605; 83690; 83735; 83880; 84100; 84134; 84443; 84484; 85025; 85610; 85730; 87040; 87070; 87081; 87086; 87205; 89220; 93005; 93925; 93970; 94002; 94003; 94640; 96365; 99291; C1758; J1200; J1644; J1815; J2001; J2060; J2270; J2543; J3480; J7030; J7620; Q0092